=== PATIENT | male | born 1990 | race Caucasian/White ===

== ENCOUNTER 2020-05-11 14:31 | Inpatient (IN) ==
[2020-05-11] MEDS ORDERED: 0.9 % Sodium Chloride 1,000 ML IVC ONE ×2 (14:47→19:20)
[2020-05-11] MEDS ORDERED: Ondansetron 4 MG/2 ML VIAL IVP ONE (14:47)
[2020-05-11] MEDS ORDERED: 0.9 % Sodium Chloride 1,000 ML IV ONE (15:02)
[2020-05-11 15:11] LABS: Basophils % 0.2 %; Eosinophils % 0.2 %; Hematocrit 41.2 % (37.5-50.1); Hemoglobin 13.3 g/dL (12.9-16.9); Immature Granulocytes % 0.2 % (0-4); Lymphocytes # 0.5 K/mcL (0.6-4.6); Lymphocytes % 10.6 %; Mean Corpuscular HGB Conc 32.3 g/dL (31.6-35.5); Mean Corpuscular Volume 83.6 fL (83.0-100.0); Monocytes # 0.3 K/mcL (0.0-1.3); Monocytes % 7.3 %; Neutrophils # 3.7 K/mcL (1.6-8.9); Platelet Count 103 K/mcL (140-400); Red Blood Count 4.93 M/mcL (4.19-5.50); Red Cell Distribution Width 13.2 % (11.5-14.5); Segmented Neutrophils % 81.5 %; White Blood Count 4.5 K/mcL (4.3-11.1)
[2020-05-11] MEDS ORDERED: Isovue-370 500 ML BOTTLE IVP ONE (15:11)
[2020-05-11 15:37] LABS: Alanine Aminotransferase 180 Units/L (7-52); Albumin 4.1 g/dL (3.5-5.7); Albumin/Globulin Ratio 1.4 (1.1-2.2); Alkaline Phosphatase 100 Units/L (34-104); Aspartate Amino Transferase 87 Units/L (13-39); BUN/Creatinine Ratio 8 (6-26); Blood Urea Nitrogen 8 mg/dL (6-20); Calcium 9.2 mg/dL (8.6-10.3); Carbon Dioxide 25 mEq/L (23-29); Chloride 96 mEq/L (98-107); Globulin 2.9 g/dL (2.4-3.5); Glucose 138 mg/dL (70-105); Lipase 6 Units/L (11-82); Osmolality,Calculated 271 (280-300); Potassium 3.7 mEq/L (3.5-5.1); Sodium 130 mEq/L (136-145); eGFR For African Americans > 60 (> 60); eGFR For Non-African Americans > 60 (> 60)
[2020-05-11 16:06] LABS: Procalcitonin 2.36 ng/mL (0.00-0.15)
[2020-05-11] MEDS ORDERED: *HR* LORazepam 2 MG/ML VIAL IVP ONE (17:23)
[2020-05-11 17:34] LABS: Bilirubin,Urine Negative (Negative); Blood,Urine Negative (Negative); Clarity,Urine Clear (Clear); Color,Urine Colorless (Yellow); Glucose,Urine (UA) Normal (Normal); Ketones,Urine Negative (Negative); Leukocyte Esterase,Urine Negative (Negative); Nitrite,Urine Negative (Negative); PH,Urine 7.5 pH Units (5.0-8.0); Protein,Urine Negative (Neg-Trace); Specific Gravity,Urine 1.016 (1.010-1.025); Urobilinogen,Urine Normal (Normal)
[2020-05-11] MEDS ORDERED: *HR* LORazepam 1 MG TABLET PO PRN (19:18)
[2020-05-11] MEDS ORDERED: Naloxone 0.4 MG/ML INJ IVP PRN (19:20)
[2020-05-11] MEDS ORDERED: Ondansetron 4 MG/2 ML VIAL IVP PRN (19:20)
[2020-05-11 20:05] LABS: Amphetamine Screen,Urine Negative ng/mL (Cutoff=1000); Barbiturate Screen,Urine Negative ng/mL (Cutoff=200); Benzodiazepines Screen,Urine Negative ng/mL (Cutoff=200); Cannabinoid Screen,Urine Positive ng/mL (Cutoff = 50); Cocaine Screen,Urine Negative ng/mL (Cutoff= 300); Opiate Screen,Urine Positive ng/mL (Cutoff=300); Phencyclidine Screen,Urine Negative ng/mL (Cutoff=25)
[2020-05-11] MEDS: Nicotine 14 MG PATCH.TD24 TD SCH (20:45)
[2020-05-11] MEDS: Piperacillin/Tazobactam 3.375 GM in 0.9 % Sodium Chloride Mini Bag 100 ML IVPB SCH (20:45)
[2020-05-11 21:26] LABS: Hepatitis B Surface Antigen Nonreactive (Nonreactive)
[2020-05-11 21:55] LABS: HIV-1&2 Antibody & p24 Ag Nonreactive (Nonreactive)
[2020-05-11 21:56] LABS: Hepatitis B Core IgM Nonreactive (Nonreactive)
[2020-05-11 21:57] LABS: Hepatitis A Antibody IgM Nonreactive (Nonreactive)
[2020-05-11] MEDS: Vancomycin 1,250 MG/262.5 ML IV.SOLN IVPB SCH (22:12)
[2020-05-12] MEDS: Piperacillin/Tazobactam 3.375 GM in 0.9 % Sodium Chloride Mini Bag 100 ML IVPB SCH ×3 (05:00→21:11)
[2020-05-12] MEDS: *HR* Enoxaparin 40 MG/0.4 ML SYRINGE SQ SCH (05:02)
[2020-05-12] MEDS: Nicotine 14 MG PATCH.TD24 TD SCH (08:55)
[2020-05-12] MEDS: Vancomycin 1,250 MG/262.5 ML IV.SOLN IVPB SCH ×2 (08:56→21:13)
[2020-05-12 09:21] LABS: Basophils % 0.6 %; Eosinophils % 0.6 %; Red Cell Distribution Width 13.2 % (11.5-14.5)
[2020-05-12 09:23] LABS: Hematocrit 37.2 % (37.5-50.1); Hemoglobin 12.2 g/dL (12.9-16.9); Immature Granulocytes % 0.6 % (0-4); Immature Platelets 3.4 % (1.1-6.1); Lymphocytes # 0.3 K/mcL (0.6-4.6); Lymphocytes % 18.8 %; Mean Corpuscular HGB Conc 32.8 g/dL (31.6-35.5); Mean Corpuscular Hemoglobin 27.5 pg (28.0-33.3); Mean Corpuscular Volume 83.8 fL (83.0-100.0); Monocytes # 0.2 K/mcL (0.0-1.3); Monocytes % 13.1 %; Neutrophils # 1.1 K/mcL (1.6-8.9); Red Blood Count 4.44 M/mcL (4.19-5.50); Segmented Neutrophils % 66.3 %; White Blood Count 1.6 K/mcL (4.3-11.1)
[2020-05-12 09:30] LABS: Platelet Count 69 K/mcL (140-400)
[2020-05-12 09:38] LABS: INR 1.1; Prothrombin Time 12.9 Seconds (9.4-12.1)
[2020-05-12 09:39] LABS: Activated Partial Thrombo Time 33.6 Seconds (26.0-36.0)
[2020-05-12 09:42] LABS: Alanine Aminotransferase 132 Units/L (7-52); Albumin 3.4 g/dL (3.5-5.7); Albumin/Globulin Ratio 1.4 (1.1-2.2); Alkaline Phosphatase 79 Units/L (34-104); Aspartate Amino Transferase 68 Units/L (13-39); BUN/Creatinine Ratio 10 (6-26); Bilirubin,Total 0.8 mg/dL (0.3-1.0); Blood Urea Nitrogen 8 mg/dL (6-20); Calcium 8.2 mg/dL (8.6-10.3); Carbon Dioxide 26 mEq/L (23-29); Chloride 103 mEq/L (98-107); Creatine Kinase 146 Units/L (30-223); Globulin 2.5 g/dL (2.4-3.5); Glucose 131 mg/dL (70-105); Magnesium 1.7 mg/dL (1.6-2.6); Osmolality,Calculated 280 (280-300); Phosphorous 3.2 mg/dL (2.7-4.5); Potassium 3.8 mEq/L (3.5-5.1); Sodium 135 mEq/L (136-145); Total Protein 5.9 g/dL (6.4-8.9); eGFR For African Americans > 60 (> 60); eGFR For Non-African Americans > 60 (> 60)
[2020-05-12 10:04] LABS: Platelet Estimate Decreased (Normal)
[2020-05-12 13:27] LABS: Complement C3 137 mg/dL (87-200)
[2020-05-12 14:10] LABS: Hepatitis C Virus Antibody Reactive (Nonreactive)
[2020-05-12] MEDS ORDERED: Doxycycline 100 MG in 0.9 % Sodium Chloride Mini Bag 100 ML IVPB SCH (18:00)
[2020-05-12] MEDS ORDERED: *HR* Buprenorphine HCl 2 MG SUBLINGUAL TABLET SL ONE (18:31)
[2020-05-12] MEDS ORDERED: *HR* Buprenorphine HCl 2 MG SUBLINGUAL TABLET SL PRN (18:32)
[2020-05-12] MEDS ORDERED: hydrOXYzine pamoate 25 MG CAPSULE PO PRN (18:37)
[2020-05-12] MEDS: *HR* Buprenorphine HCl 2 MG SUBLINGUAL TABLET SL PRN (22:42)
[2020-05-13 01:25] LABS: Hemoglobin 12.5 g/dL (12.9-16.9)
[2020-05-13 01:26] LABS: Basophils % 0.4 %; Eosinophils % 0.4 %; Immature Granulocytes % 0.4 % (0-4); Immature Platelets 6.4 % (1.1-6.1); Lymphocytes # 0.9 K/mcL (0.6-4.6); Lymphocytes % 31.7 %; Mean Corpuscular HGB Conc 32.9 g/dL (31.6-35.5); Mean Corpuscular Hemoglobin 26.7 pg (28.0-33.3); Mean Corpuscular Volume 81.2 fL (83.0-100.0); Mean Platelet Volume 11.1 fL (9.4-12.4); Monocytes # 0.4 K/mcL (0.0-1.3); Monocytes % 12.5 %; Neutrophils # 1.5 K/mcL (1.6-8.9); Red Blood Count 4.68 M/mcL (4.19-5.50); Red Cell Distribution Width 13.2 % (11.5-14.5); Segmented Neutrophils % 54.6 %; White Blood Count 2.8 K/mcL (4.3-11.1)
[2020-05-13 01:31] LABS: Platelet Count 90 K/mcL (140-400)
[2020-05-13 01:51] LABS: Alanine Aminotransferase 136 Units/L (7-52); Albumin 3.6 g/dL (3.5-5.7); Albumin/Globulin Ratio 1.2 (1.1-2.2); Alkaline Phosphatase 82 Units/L (34-104); Aspartate Amino Transferase 62 Units/L (13-39); BUN/Creatinine Ratio 12 (6-26); Bilirubin,Total 0.6 mg/dL (0.3-1.0); Blood Urea Nitrogen 8 mg/dL (6-20); Calcium 9.2 mg/dL (8.6-10.3); Carbon Dioxide 24 mEq/L (23-29); Chloride 104 mEq/L (98-107); Globulin 3.1 g/dL (2.4-3.5); Glucose 111 mg/dL (70-105); Osmolality,Calculated 283 (280-300); Potassium 3.5 mEq/L (3.5-5.1); Sodium 137 mEq/L (136-145); Total Protein 6.7 g/dL (6.4-8.9); eGFR For African Americans > 60 (> 60); eGFR For Non-African Americans > 60 (> 60)
[2020-05-13 01:53] LABS: Platelet Estimate Slight Decrease (Normal); Reactive Lymphocytes Present (Not Present)
[2020-05-13] MEDS: Piperacillin/Tazobactam 3.375 GM in 0.9 % Sodium Chloride Mini Bag 100 ML IVPB SCH ×2 (04:03→14:12)
[2020-05-13] MEDS: *HR* Enoxaparin 40 MG/0.4 ML SYRINGE SQ SCH (06:13)
[2020-05-13] MEDS: Vancomycin 1,250 MG/262.5 ML IV.SOLN IVPB SCH ×2 (09:29→16:18)
[2020-05-13] MEDS: Doxycycline 100 MG in 0.9 % Sodium Chloride Mini Bag 100 ML IVPB SCH ×2 (09:29→22:40)
[2020-05-13] MEDS: Nicotine 14 MG PATCH.TD24 TD SCH (09:30)
[2020-05-13] MEDS: *HR* Buprenorphine HCl 8 MG TAB.SUBL SL SCH (09:30)
[2020-05-13] MEDS ORDERED: Aminoglycoside Consult 1 EACH MC ONE (16:42)
[2020-05-13] MEDS: *HR* Buprenorphine HCl 2 MG SUBLINGUAL TABLET SL PRN (23:01)
[2020-05-14] MEDS: Piperacillin/Tazobactam 3.375 GM in 0.9 % Sodium Chloride Mini Bag 100 ML IVPB SCH ×3 (00:25→09:49)
[2020-05-14] MEDS: Vancomycin 1,250 MG/262.5 ML IV.SOLN IVPB SCH ×2 (00:26→07:35)
[2020-05-14 02:04] LABS: Eosinophils # 0.1 K/mcL (0.0-0.6); Eosinophils % 1.2 %; Hematocrit 38.2 % (37.5-50.1); Hemoglobin 12.5 g/dL (12.9-16.9); Lymphocytes # 1.5 K/mcL (0.6-4.6); Lymphocytes % 36.5 %; Mean Corpuscular HGB Conc 32.7 g/dL (31.6-35.5); Mean Corpuscular Hemoglobin 26.7 pg (28.0-33.3); Mean Corpuscular Volume 81.6 fL (83.0-100.0); Mean Platelet Volume 11.3 fL (9.4-12.4); Monocytes # 0.5 K/mcL (0.0-1.3); Monocytes % 10.7 %; Neutrophils # 2.1 K/mcL (1.6-8.9); Platelet Count 103 K/mcL (140-400); Red Blood Count 4.68 M/mcL (4.19-5.50); Red Cell Distribution Width 13.3 % (11.5-14.5); Segmented Neutrophils % 50.6 %; White Blood Count 4.2 K/mcL (4.3-11.1)
[2020-05-14 02:24] LABS: Alanine Aminotransferase 100 Units/L (7-52); Albumin 3.4 g/dL (3.5-5.7); Albumin/Globulin Ratio 1.2 (1.1-2.2); Alkaline Phosphatase 69 Units/L (34-104); Aspartate Amino Transferase 33 Units/L (13-39); BUN/Creatinine Ratio 14 (6-26); Bilirubin,Total 0.4 mg/dL (0.3-1.0); Blood Urea Nitrogen 11 mg/dL (6-20); Calcium 8.9 mg/dL (8.6-10.3); Carbon Dioxide 25 mEq/L (23-29); Chloride 105 mEq/L (98-107); Globulin 2.9 g/dL (2.4-3.5); Glucose 116 mg/dL (70-105); Osmolality,Calculated 286 (280-300); Potassium 3.5 mEq/L (3.5-5.1); Sodium 138 mEq/L (136-145); Total Protein 6.3 g/dL (6.4-8.9); eGFR For African Americans > 60 (> 60); eGFR For Non-African Americans > 60 (> 60)
[2020-05-14] MEDS: *HR* Enoxaparin 40 MG/0.4 ML SYRINGE SQ SCH (04:51)
[2020-05-14] MEDS: Doxycycline 100 MG in 0.9 % Sodium Chloride Mini Bag 100 ML IVPB SCH (07:35)
[2020-05-14] MEDS: Nicotine 14 MG PATCH.TD24 TD SCH (09:10)
[2020-05-14] MEDS: *HR* Buprenorphine HCl 8 MG TAB.SUBL SL SCH (09:10)
[2020-05-14 10:29] VITALS: BP 114/68
[2020-05-14 18:14] LABS: ANA IgG by ELISA NONE DETECTED (None Detected)
[2020-05-15 08:58] LABS: Serine Protease-3 Antibody 1 AU/mL (0-19)
== END 2020-05-14 16:43 | disposition home or self-care (01) | DRG 872 ==
LOC: EMEROOARM 14:31 → 2NENU 14:31 → SUATTDRO 17:46 → 2NENU 18:30
PROVIDERS: ADMIT Internal Medicine; ATTEND Internal Medicine